=== PATIENT | female | born 1980 | race African-American/Black ===

== ENCOUNTER 2017-01-21 15:30 | Emergency (ER) | payer MEDICARE, OTHER ==
[2017-01-21] MEDS ORDERED: OXYCODONE-ACETAMINOPHEN 5-325 MG TABLET PO ONE (16:36)
[2017-01-21] MEDS ORDERED: SULFAMETHOXAZOLE/TRIMETHOPRIM 800-160 MG TABLET PO ONE (16:36)
--- NOTE | 2017-01-21 16:43 | ER Document Report ---
ED General - General Stated Complaint: POSSIBLE BUG BITE Time Seen by Provider: 01/21/17 16:25 Mode of Arrival: Ambulatory Information source: Patient Notes: Emergency department from [facility] but possible insect bite to her right sanchez. Patient reports she noticed the area was sore when she had a pedicure done last Wednesday. On Wednesday it developed into a pimple. She reports the size increased, opened up and started draining blood/pus. She reports today increased pain and erythema. She denies fever vomiting diarrhea. She reports that at [facility] she was treated with some antibiotics. Note from the [facility] department nurse reports that she has had 3 doses of Bactrim and minocycline. Patient denies history of MRSA. Patient reports she is a [employer]. TRAVEL OUTSIDE OF THE [place] IN LAST 30 DAYS: No - HPI Onset: Last week Quality of pain: Achy Severity: Severe Associated symptoms: None Exacerbated by: Denies Relieved by: Denies Similar symptoms previously: Yes Recently seen / treated by doctor: Yes - Related Data Allergies/Adverse Reactions: No Known Allergies Allergy (Verified 04/11/14 13:49) Past Medical History - General Information source: Patient Last Menstrual Period: january 07, 2017 - Social History Smoking Status: Current Every Day Smoker Cigarette use (# per day): Yes Frequency of alcohol use: None Drug Abuse: None Lives with: Other - [facility] Family History: Reviewed & Not Pertinent - Past Medical History Cardiac Medical History: Reports: Hx Hypercholesterolemia, Hx Hypertension GI Medical History: Reports: Hx Gastroesophageal Reflux Disease Psychiatric Medical History: Reports: Hx Bipolar Disorder, Hx Schizoaffective Disorder Infectious Medical History: Denies: Hx MRSA Past Surgical History: Reports: Hx Section - x4 - Immunizations Immunizations up to date: Yes Hx Diphtheria, Pertussis, Tetanus Vaccination: Yes Hx Pneumococcal Vaccination: 09/06/10 Review of Systems - Review of Systems Notes: Review HPI for review of systems., All other systems negative Physical Exam - Vital signs Vitals: Temp Pulse Resp BP Pulse Ox 98.3 F 52 L 20 120/71 99 01/21/17 17:52 01/21/17 17:52 01/21/17 17:52 01/21/17 17:52 01/21/17 17:52 - Notes Notes: PHYSICAL EXAMINATION: GENERAL: Well-appearing and in no acute distress , laughing with OCSD HEAD: Atraumatic, normocephalic. EYES: Pupils equal round extraocular movements intact, sclera anicteric, conjunctiva are normal. ENT: nares patent, Moist mucous membranes. NECK: Normal range of motion, supple without lymphadenopathy LUNGS: CTAB and equal. No wheezes rales or rhonchi. HEART: Regular rate and rhythm without murmurs ABDOMEN: Soft, no tenderness. No guarding, no rebound EXTREMITIES: Normal range of motion, no pitting edema. No cyanosis. NEUROLOGICAL: Cranial nerves grossly intact. Normal sensory/motor exams. PSYCH: Normal mood, normal affect. SKIN: Warm, Dry, normal turgor,wound noted to the right mid sanchez erythema slight swelling no induration Course - Re-evaluation Re-evalutation: 01/21/17 16:42 Patient does have an open sore to the right sanchez no draining with pressure or palpation. We will open it up with an I&D and place patient on antibiotics. - Vital Signs Vital signs: Temp Pulse Resp BP Pulse Ox 98.3 F 52 L 20 120/71 99 01/21/17 17:52 01/21/17 17:52 01/21/17 17:52 01/21/17 17:52 01/21/17 17:52 Procedures - Incision and Drainage Right sanchez Type: Simple Anesthetic type: 1% Lidocaine Blade size: 11 I&D procedure: Betadine prep applied Incision Method: Incision made by scalpel Amount/type of drainage: moderate amount thick/creamy drainage, off white, culture sent Notes: 01/21/17 17:55 t incision made Discharge - Discharge Clinical Impression: Insect bite, Abscess, Cellulitis Condition: Stable Disposition: HOME, SELF-CARE Instructions: Oral Narcotic Medication ([facility]), Trimethoprim-Sulfa ([facility]), Abscess ([facility]), Cephalexin ([facility]), Post Incision and Drainage Additional Instructions: *You have been treated for an abscess with incision and drainage *Take medication as prescribed (you have received a dose of percocet, septra and keflex here) *Monitor the site for signs of increasing infection such as increasing pain, redness, swelling, warmth *Wash the site twice daily as discussed *Follow up with a primary care provider within 5 days for recheck *Return to ED for signs of increasing infection, worsening condition, changes, needs Prescriptions: Cephalexin Monohydrate [Keflex 500 mg Capsule] 500 mg PO QID #20 capsule Oxycodone HCl/Acetaminophen [Percocet 5-325 mg Tablet] 1 - 2 tab PO ASDIR PRN # 15 tablet PRN Reason: Sulfamethoxazole/Trimethoprim [Bactrim Ds Tablet] 1 each PO BID #20 tablet
[2017-01-21] MEDS ORDERED: CEPHALEXIN 500 MG CAPSULE PO ONE (17:26)
[2017-01-21 17:52] VITALS: BP 120/71
== END 2017-01-21 18:02 | disposition home or self-care (01) ==
LOC: ER 15:30
PROC: 0H9KXZZ Drainage of Right Lower Leg Skin, External Approach (ICD-10-PCS; principal; 2017-01-21)
DX: S80.861A Insect bite (nonvenomous), right lower leg, initial encounter (principal); L03.115 Cellulitis of right lower limb; W57.XXXA Bitten or stung by nonvenomous insect and other nonvenomous arthropods, initial encounter
CPT/HCPCS: 87070; 87075; 87077; 87186; 87205; 99283